=== PATIENT | female | born 1990 | race African-American/Black ===

== ENCOUNTER 2017-11-27 07:58 | Emergency (ER) | payer OTHER ==
[~2017-11-27] VITALS: Ht 175.3 cm; Wt 114.0 kg
[2017-11-27] MEDS ORDERED: METHOCARBAMOL 500MG TABLET PO ONE (09:00)
[2017-11-27] MEDS ORDERED: IBUPROFEN 600MG TABLET PO ONE (09:00)
[2017-11-27 12:05] VITALS: BP 114/74
== END 2017-11-27 12:24 | disposition home or self-care (01) ==
LOC: ER 08:45
DX: S16.1XXA Strain of muscle, fascia and tendon at neck level, initial encounter (principal); F17.200 Nicotine dependence, unspecified, uncomplicated; M25.511 Pain in right shoulder; X58.XXXA Exposure to other specified factors, initial encounter; Y93.89 Activity, other specified; Y92.89 Other specified places as the place of occurrence of the external cause; Y99.8 Other external cause status
CPT/HCPCS: 99283

== ENCOUNTER 2019-02-16 15:35 | Emergency (ER) | payer OTHER | END 2019-02-16 18:48 | disposition left against medical advice (07) | LOC: ER 15:35 | DX: Z53.21 Procedure and treatment not carried out due to patient leaving prior to being seen by health care provider (principal) ==

== ENCOUNTER 2019-02-19 00:39 | Emergency (ER) | payer OTHER ==
[~2019-02-19] VITALS: Ht 170.2 cm; Wt 109.0 kg
[2019-02-19] MEDS ORDERED: AMOXICILLIN 500 MG CAPSULE PO ONE (03:30)
[2019-02-19 03:42] VITALS: BP 116/65
== END 2019-02-19 03:43 | disposition home or self-care (01) ==
LOC: ER 00:39
DX: J03.00 Acute streptococcal tonsillitis, unspecified (principal); F12.10 Cannabis abuse, uncomplicated
CPT/HCPCS: 99283

== ENCOUNTER 2019-03-09 02:14 | Emergency (ER) | payer OTHER ==
[~2019-03-09] VITALS: Ht 170.2 cm; Wt 103.0 kg
[2019-03-09] MEDS ORDERED: IBUPROFEN 600MG TABLET PO STA (05:53)
[2019-03-09 06:21] VITALS: BP 120/94
== END 2019-03-09 06:39 | disposition home or self-care (01) ==
LOC: ER 02:14
DX: S93.402A Sprain of unspecified ligament of left ankle, initial encounter (principal); S93.602A Unspecified sprain of left foot, initial encounter; W18.31XA Fall on same level due to stepping on an object, initial encounter; Y93.01 Activity, walking, marching and hiking; Y92.89 Other specified places as the place of occurrence of the external cause; F17.210 Nicotine dependence, cigarettes, uncomplicated; F12.90 Cannabis use, unspecified, uncomplicated
CPT/HCPCS: 73630; 99283

== ENCOUNTER 2019-10-09 01:25 | Emergency (ER) | payer OTHER ==
[~2019-10-09] VITALS: Ht 170.2 cm; Wt 114.0 kg
[2019-10-09 03:14] LABS: CLARITY URINE CLEAR (CLEAR); COLOR URINE YELLOW (YELLOW); KETONES URINE NEGATIVE (NEGATIVE); LEUKOCYTE ESTERASE URINE 2+ (NEGATIVE); NITRITE URINE NEGATIVE (NEGATIVE); OCCULT BLOOD URINE TRACE (NEGATIVE); PH URINE 7.5 (4.5-8.0); PROTEIN URINE NEGATIVE (NEGATIVE); SPECIFIC GRAVITY URINE 1.001 (1.005-1.030); UROBILINOGEN URINE 0.2 E.U./dL (0.2-1.0)
[2019-10-09 03:37] LABS: UCG SCREEN NEGATIVE
[2019-10-09 05:10] VITALS: BP 125/82
== END 2019-10-09 05:10 | disposition home or self-care (01) ==
LOC: ER 01:25
DX: N30.90 Cystitis, unspecified without hematuria (principal); F17.200 Nicotine dependence, unspecified, uncomplicated; F12.10 Cannabis abuse, uncomplicated
CPT/HCPCS: 81003; 81025; 99283

== ENCOUNTER 2021-04-29 05:16 | Emergency (ER) | payer MEDICAID, OTHER ==
[~2021-04-29] VITALS: Ht 170.2 cm; Wt 112.0 kg
[2021-04-29] MEDS ORDERED: IBUPROFEN 400MG TABLET PO ONE (07:15)
[2021-04-29] MEDS ORDERED: ACETAMINOPHEN 325MG TABLET PO ONE (07:15)
[2021-04-29 08:49] VITALS: BP 131/85
== END 2021-04-29 08:50 | disposition home or self-care (01) ==
LOC: ER 05:16
DX: S39.82XA Other specified injuries of lower back, initial encounter (principal); S99.821A Other specified injuries of right foot, initial encounter; F12.10 Cannabis abuse, uncomplicated; V43.52XA Car driver injured in collision with other type car in traffic accident, initial encounter; Y93.89 Activity, other specified; Y92.488 Other paved roadways as the place of occurrence of the external cause
CPT/HCPCS: 73630; 81025; 99283